=== PATIENT | female | born 1980 | race Caucasian/White ===

== ENCOUNTER → 2018-08-16 | Outpatient (CLI) | payer BC ==
--- NOTE | 2018-08-16 08:01 | Diagnostic Imaging Report ---
PROCEDURE: US Gallbladder. TECHNIQUE: Multiple real-time grayscale images were obtained over the right upper quadrant in various projections. INDICATION: Epigastric abdominal pain FINDINGS: Grayscale imaging of the gallbladder reveals no intraluminal filling defect. There is no gallbladder wall thickening or pericholecystic fluid. No intra or extrahepatic biliary ductal dilatation is identified. There is no evidence of pancreatic, abdominal aortic or inferior vena caval abnormality and no free fluid was documented. IMPRESSION: Unremarkable gallbladder ultrasound. Dictated by: Dictated on workstation # [id number]
== END ==
LOC: RAD 06:46
PROVIDERS: ATTEND Surgery
DX: R10.13 Epigastric pain (principal); R19.4 Change in bowel habit
CPT/HCPCS: 76705

== ENCOUNTER → 2018-09-10 | Outpatient (CLI) | payer BC ==
[~2018-09-10] MED LIST: CATHETER FLUSH 10 ML SYR IV PRN
--- NOTE | 2018-09-10 13:05 | Diagnostic Imaging Report ---
INDICATION: Abdominal pain. TECHNIQUE: Patient was administered 4.8 mCi of technetium 99m Choletec intravenously and imaging over the abdomen was performed. After 60 minutes, the patient ingested one can of Ensure and gallbladder ejection fraction was calculated. FINDINGS: There is homogeneous uptake of activity by the liver with prompt excretion of activity into the common duct and gallbladder. There is normal passage of activity into the small bowel. Gallbladder ejection fraction is 84%. IMPRESSION: 1. No evidence of cystic duct or common bile duct obstruction. 2. Gallbladder ejection fraction of 84%. Dictated by: Dictated on workstation # [id number]
== END ==
LOC: CARD 09:30
PROVIDERS: ATTEND Surgery
DX: R10.13 Epigastric pain (principal); R19.4 Change in bowel habit
CPT/HCPCS: 78227

== ENCOUNTER 2018-11-02 05:33 | Outpatient (CLI) | payer BC ==
[~2018-11-02] VITALS: Ht 172.7 cm; Wt 56.7 kg
[2018-11-02] MEDS ORDERED: CALC-712 PO (10:30)
[2018-11-02] MEDS ORDERED: MULT-141 PO (10:30)
[2018-11-08] MEDS ORDERED: DOCU-143 PO (10:43)
[2018-11-08] MEDS ORDERED: ACHD5005 PO (10:43)
== END 2018-11-02 10:35 | disposition home or self-care (01) ==
LOC: PREOP 05:33
PROVIDERS: ATTEND Surgery
DX: Z01.818 Encounter for other preprocedural examination (principal)

== ENCOUNTER → 2019-09-11 | Outpatient (CLI) | payer BC ==
[~2019-09-11] MED LIST changes: +ACHD5005 PO; +CALC-712 PO; +DOCU-143 PO; +HOLD METFORMIN - RECEIVED CONTRAST 20 ML VIAL IV SCH; +IOHEXOL 350 MG/ML 100 ML (OMNIPAQUE 350) VIAL IV ONE; +MULT-141 PO; +NS 100 ML (IVPB) BAG IV ONE
--- NOTE | 2019-09-11 16:45 | Diagnostic Imaging Report ---
PROCEDURE: CT abdomen and pelvis with contrast. TECHNIQUE: Multiple contiguous axial images were obtained through the abdomen and pelvis after administration of intravenous contrast. Auto Exposure Controls were utilized during the CT exam to meet ALARA standards for radiation dose reduction. INDICATION: Hyperbilirubinemia, indigestion, and weight loss. COMPARISON: I have no previous. FINDINGS: There is a paucity of mesenteric and retroperitoneal fat, limiting soft tissue differentiation and assessment for inflammatory changes. There is some left-sided pelvic venous congestion extending to the distended left ovarian vein to the level of the left renal vein. This can be incidental but correlate clinically. There is an indwelling menstrual cup and bilateral tubal ligation. No acute adnexal abnormality. No findings of TOA or pelvic inflammatory process. There is no evidence for appendicitis or diverticulitis. Kidneys are unobstructed, nonfocal, and nonacute. Gallbladder is surgically absent. The liver, spleen, adrenals, and pancreas are nonacute. The aortoiliac and mesenteric vessels are patent and nonaneurysmal. There is no ascites. There is no fluid collection. The lung bases and the osseous structures are nonacute. IMPRESSION: Post-interventional changes. No acute-appearing abdominopelvic abnormalities identified. We do note some left-sided pelvic venous congestion without vascular obstruction. Dictated by: Dictated on workstation # [id number]
== END ==
LOC: RAD 15:34
PROVIDERS: ATTEND Nurse Practitioner Family
DX: E80.6 Other disorders of bilirubin metabolism (principal); K30 Functional dyspepsia
CPT/HCPCS: 74177